=== PATIENT | male | born 1965 | race Caucasian/White ===

== ENCOUNTER 2022-10-16 06:24 | Day surgery (SDC) | payer OTHER ==
[2022-10-16] MEDS ORDERED: Propofol 200 MG/20 ML SDV ONE ×2 (06:52→08:00)
[2022-10-16] MEDS ORDERED: Lactated Ringers 1,000 ML IV SCH (07:00)
[2022-10-16] MEDS ORDERED: fentaNYL 50 MCG/ML SDV ONE (08:00)
[2022-10-16] MEDS ORDERED: Midazolam 1 MG/ML 2 ML SDV ONE (08:00)
== END 2022-10-16 09:38 | disposition home or self-care (01) ==
LOC: JP.SDS 06:24
PROVIDERS: ATTEND Student in an Organized Health Care Education/Training Program
DX: Z12.11 Encounter for screening for malignant neoplasm of colon (principal); D12.0 Benign neoplasm of cecum; D12.3 Benign neoplasm of transverse colon; D12.5 Benign neoplasm of sigmoid colon; K57.30 Diverticulosis of large intestine without perforation or abscess without bleeding
CPT/HCPCS: 45380; 45385; 88305; J2250; J2704; J3010; J7120